=== PATIENT | female | born 1975 | race Caucasian/White ===

== ENCOUNTER 2020-10-26 14:51 | Outpatient (CLI) | payer OTHER, SELFPAY ==
--- NOTE | ~2020-10-26 | MM_ITS ---
EXAMINATION: MM screening angus BI w sonya HISTORY: Screening mammogram, family history of breast cancer in her mother. TECHNIQUE: Craniocaudal and mediolateral oblique 3-D tomosynthesis images were obtained and synthetic 2-D images were generated. CAD analysis was submitted and interpreted. COMPARISON: 07/19/2018 BREAST PARENCHYMAL COMPOSITION: There are scattered areas of fibroglandular density. FINDINGS: There is no evidence of suspicious mass, calcification, or architectural distortion to sugg est malignancy in either breast. There has been no suspicious interval change. IMPRESSION: 1. No mammographic evidence of malignancy. 2. Recommend routine screening mammography in one year. BI-RADS Category 1: Negative Reviewed, dictated and finalized at location A.
== END 2020-10-26 14:52 | disposition home or self-care (01) ==
LOC: ANHIMG 14:57
PROVIDERS: PCP Physician Assistant; Visit Provider Physician Assistant
DX: Z12.31 Encounter for screening mammogram for malignant neoplasm of breast (principal)
CPT/HCPCS: 77063; 77067

== ENCOUNTER 2021-12-06 07:58 | Outpatient (CLI) | payer OTHER, SELFPAY ==
--- NOTE | ~2021-12-06 | MM_ITS ---
EXAMINATION: MM screening angus BI w sonya HISTORY: Screening mammogram TECHNIQUE: Craniocaudal and mediolateral oblique 3-D tomosynthesis images were obtained and synthetic 2-D images were generated. CAD analysis was submitted and interpreted. COMPARISON: 10/26/2020, 07/19/2018 bilateral screening mammogram examinations BREAST PARENCHYMAL COMPOSITION: There are scattered areas of fibroglandular density. FINDINGS: There is no evidence of suspicious mass, calcification, or architectural distortion to sugg est malignancy in either breast. There has been no suspicious interval change. IMPRESSION: 1. No mammographic evidence of malignancy. 2. Recommend routine screening mammography in one year. BI-RADS Category 1: Negative Reviewed, dictated and finalized at location B.
== END 2021-12-06 07:59 | disposition home or self-care (01) ==
PROVIDERS: PCP Physician Assistant; Visit Provider Obstetrics & Gynecology
DX: Z12.31 Encounter for screening mammogram for malignant neoplasm of breast (principal)
CPT/HCPCS: 77063; 77067

== ENCOUNTER 2022-12-18 15:20 | Outpatient (CLI) | payer OTHER, SELFPAY ==
--- NOTE | ~2022-12-18 | MM_ITS ---
EXAMINATION: MM screening angus BI w sonya HISTORY: Screening mammogram, family history of breast cancer in her mother. TECHNIQUE: Craniocaudal and mediolateral oblique 3-D tomosynthesis images were obtained and synthetic 2-D images were generated. CAD analysis was submitted and interpreted. COMPARISON: 12/06/2021, 10/26/2020, 07/19/2018 BREAST PARENCHYMAL COMPOSITION: There are scattered areas of fibroglandular density. FINDINGS: No suspicious mass, calcification, or architectural distortion are identified in either filippo ast to suggest malignancy. There has been no suspicious interval change. IMPRESSION: 1. No mammographic evidence of malignancy. 2. Recommend routine screening mammography in one year. BI-RADS Category 1: Negative Reviewed, dictated and finalized at location A.
== END 2022-12-18 15:21 | disposition home or self-care (01) ==
PROVIDERS: PCP Physician Assistant; Visit Provider Nurse Practitioner
DX: Z12.31 Encounter for screening mammogram for malignant neoplasm of breast (principal)
CPT/HCPCS: 77063; 77067

== ENCOUNTER 2024-01-22 15:15 | Outpatient (CLI) | payer OTHER, SELFPAY ==
--- NOTE | ~2024-01-22 | MM_ITS ---
EXAMINATION: MM screening angus BI w sonya HISTORY: Screening mammogram, family history of breast cancer in her mother. TECHNIQUE: Craniocaudal and mediolateral oblique 3-D tomosynthesis images were obtained and synthetic 2-D images were generated. CAD analysis was submitted and interpreted. COMPARISON: 12/18/2022, 12/06/2021, 10/26/2020, 07/19/2028 BREAST PARENCHYMAL COMPOSITION:Not Dense. There are scattered areas of fibroglandular density. FINDINGS: No suspicious mass, calcification, or architectural distortion are identified in either filippo ast to suggest malignancy. There has been no suspicious interval change. IMPRESSION: No mammographic evidence of malignancy. Recommend routine screening mammography in one year. BI-RADS Category 1: Negative Reviewed, dictated and finalized at [facility].
== END 2024-01-22 15:16 | disposition home or self-care (01) ==
LOC: ANHIMG 15:18
PROVIDERS: PCP Physician Assistant; Visit Provider Nurse Practitioner
DX: Z12.31 Encounter for screening mammogram for malignant neoplasm of breast (principal)
CPT/HCPCS: 77063; 77067

== ENCOUNTER 2025-03-15 15:31 | Outpatient (CLI) | payer OTHER, SELFPAY ==
--- NOTE | ~2025-03-15 | MM_ITS ---
EXAMINATION: MM screening angus BI w sonya HISTORY: Screening TECHNIQUE: Craniocaudal and mediolateral oblique 3-D tomosynthesis images were obtained and synthetic 2-D images were generated. CAD analysis was submitted and interpreted. COMPARISON: Comparison to multiple prior studies sequentially, with oldest reviewed study dated , 07/19/2018 BREAST PARENCHYMAL COMPOSITION: There are scattered areas of fibroglandular density. FINDINGS: There is no evidence of suspicious mass, calcification, or architectural distortion to suggest malignancy in either breast. IMPRESSION: 1. No mammographic evidence of malignancy. 2. Recommend routine screening mammography in one year. 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
--- OUTSIDE RECORDS SUMMARY | 2025-03-16 14:57 | XMS_ITS | Encounter Summary ---
Author Organization [facility] Address [facility] [place] [address] Care Team Providers Care Combined Rail Operator Name Role Phone Yasmin Christiansen Primary Care Provider [phone] [facility] Primary Care Provider + Justin Toledo MD Primary Care Provider [phone] Encounter Details Date Type Department Care Team (Late st Contact Info) Description 10/25/2020 Jan Medical Message Enc [facility] Family & Internal Medicine [address] [phone] [facility] Results Social History Tobacco Use Types Packs/Day Years Used Date Smoking Tobacco: Former Cigarettes Q uit: 2016 Smokeless Tobacco: Never Alcohol Use Standard Drinks/Week Comments Yes 0 (1 standard drink = 0.6 oz pur e alcohol) socially PHQ-2 Answer Date Recorded PHQ-2 Score - If the patient scores above 3, please move on to questions 3-9 0 08/06/2020 Comments No Sex and Gender Information Value Date Recorded Sex Assigned at Female 11/09/2024 9:18 AM CDT Legal Sex Female 5:44 PM CDT Gender Identity Female 11/09/2024 9:18 AM CDT Sexual Orientation Not on file COVID-19 Exposure Response Date Recorded In the last month, have you been in contact with someone who was confirmed or suspected to have Coronavirus / COVID-19? 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 COVID-19 Rule Out 01/01/2023 01/01/2023 01/01/2023 11:16 AM CDT documented as of this encounter Care Teams Combined Rail Operator Relationship Specialty [place] [address] [facility] [address] 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
--- OUTSIDE RECORDS SUMMARY | 2025-03-16 14:57 | XMS_ITS | Data Portability ---
Author Organization [facility] [place] Address [address] [place] [address] [place] [address] Care Team Providers Care Cardroom Supervisor Name Role Phone FEDE DOTSON Primary Care Provider [phone] Assessment Encounter Date Assessment Date Assessment LastModified by Organization Details LastModified Time 12/06/2024 12/06/2024 Annual gynecological exam performed. Patient will come back in a year unless there are new symptoms. [email or web address] Not available 12/06/2024 14:03:02 Plan of Treatment Reminders Order Date Submit Date Provider Last Modified By Organization Details Last Modified Time Details Appointments None recorded. Lab test, urine 2024 025 [email or web address] [place], [address], [address], [place], [address], 17:09:23 pap, IG + HR HPV - HPV regardless but if HPV is positive need subtyping 16,18/45 2024 025 [facility] (Lab), [address], [place], [address], 20:49:26 Referral None recorded. Procedures None recorded. Surgeries None recorded. Imaging US, transvagina l 2024 025 [email or web address] [address], [address], [place], [address], 19:45:15 US, pelvis 2024 025 [email or web address] [place], [address], [place], [address], 17:50:48 US, transvagina l 2024 025 [facility], [address], [place], [address], 18:32:17 MAMMO, screening, digital, bilateral 2024 025 [facility], [address], [place], [address], 04:04:45 Medication Orders None recorded. Patient TargetsNo targets recorded. Patient InstructionsNo instructions recorded. Reason for Referral None Reported. Results Created Date Observation Date Name Description Value Unit Range Abnormal Flag Note LastModifiedBy Organization Detail LastModifiedTime 12/07/1912/06/2024 IMAGE GUIDE D PAP AND HPV REGAR DLESS image guided Pap, HPV regardless of Pap result SEE RESULT S BELOW CASE REPOR T: Cytol ogy Gynec ologi jose e Repor t Case: [id number] Autho andrew estrada Provi patricia: Adrienne Kulkarni, CHARITO Colle cted: 12/06 1607 Order ing Locat ion: [place] Patho log[facility] Recei tommy: 12/07 0720 First Scree n: Nomaki ni, Moham ed, CT Speci men: Scree olga Pap - Image d, Cervi x STATE MENT OF ADEQU ACY: Satis facto ry for evalu ation Trans forma tion zone compo nent prese nt ----- ----- ----- ----- ----- ----- ----- ----- ----- ----- ----- ----- ----- ----- ----- ----- ----- ---- FINAL DIAGN OSIS: Negat eric for Intra epith elial Faith n or Ochoa lawson (NIL) . Elect ramesh lindsay adrienne d by Wayne Sharif ed, CT on 2024 at 1945 CDT ----- ----- ----- ----- ----- ----- ----- ----- ----- ----- ----- ----- ----- ----- ----- ----- ----- ---- HPV RESUL TS: HPV mRNA E6/E7 : No HPV mRNA Detec farhat NOTE: This high risk HPV mRNA assay detec ts fourt een high- risk HPV types (16, 18, 31, 33, 35, 39, 45, 51, 52, 56, 58, 59, 66, 68) witho ut diffe renti ation . COMME NT: This speci men was revie wed by a Cytot echno logis t and/o r Patho logis t (as indic ated in this repor t) after evalu ation using the Thinp rep Imagi ng Syste m. CLINI JOSE E INFOR MATIO N: Menst rual Statu s: LMP (if appli cable ): Clini jose e Histo ry/Pr eviou s Pap: Type of Neopl laine (if appli cable ): Signi fican t Clini jose e Findi ngs: Other Histo ry: Hormo reyna (if appli cable ): PAP EDUCA MARCELO L NOTE: The Pap Test is a scree olga test with an inher ent false negat eric rate. Liqui d-bas ed sampl ing may decre ase, but will not elimi alok, false negat eric resul ts. A negat eric resul t does not precl ude the prese nce and/o r devel opmen t of disea se, since the prese nce of abnor mal cells in the sampl e depen ds on the locat ion of the lesio n and sampl ing techn ique. Merline nued regul ar scree olga is the best metho d of cance r preve ntion . If repor farhat cytol ogic findi ng do not corre late with physi jose e and/o r histo rical findi ngs, furth er inves tigat ion is recom júnior d, as clini victorina coppola nted. Not Available [facility] (Lab) [address], [place], [address], 12/08/2024 20:49:26 01/19/20 25 01/18/2025 pregn zen test, urine HCG negati ve Not Available [place] [address], [place], [address], 01/18/2025 17:09:14 12/16/19 25 12/15/2024 US, pelvi s No observ ation record ed. [facility] [address], [place], [address], 12/15/2024 18:32:07 12/16/19 25 12/15/2024 US, trans vagin al No observ ation record ed. [facility] [address], [place], [address], 12/15/2024 18:32:17 12/16/19 25 12/15/2024 US, pelvi s No observ ation record ed. [email or web address] [address], [place], [address], 12/23/2024 17:13:04 02/22/20 25 02/21/2025 US, trans vagin al No observ ation record ed. [email or web address] [place] [address], [place], [address], 02/21/2025 18:00:51 02/22/20 25 02/21/2025 US, trans vagin al No observ ation record ed. ADELA [address] [address], [place], [address], 02/23/2025 11:42:55 Result Notes None recorded. Procedures Surgical History Date Name Laterality Status Provider Name and Address Organization Details Recorded Time 01/19/20 25 Endometrial Biopsy completed Adrienne Kulkarni [facility] [address], [place], [address], [facility] 01/19/2025 14:02:35 12/07/19 25 Date of Last Pap Smear completed [facility] 01/18/2025 16:47:48 01/22/20 24 Date of Last Mammogram completed [facility] 12/06/2024 14:05:30 10/31/19 19 completed [facility] 11/24/2022 09:41:23 10/31/19 19 Date of Last Colonoscopy completed [facility] 11/24/2022 09:41:23 10/31/19 19 Colonoscopy completed Tari [facility] 11/24/2022 09:50:18 05/11/19 19 hysteroscopy completed Tari [facility] 11/24/2022 09:49:41 05/11/19 09 [facility] 03/20/2020 17:23:44 05/11/18 96 extraction of wisdom tooth completed Tari Brumfield [facility] 11/24/2022 09:50:06 Imaging Results None recorded. Procedure Notes None recorded. Medical Equipment None Reported. Allergies Allergen ID Allergen Name Allergen Category Reaction Reaction Severity Criticality Documentation Date Start Date Code Code System Note Provider Name and Address Organization Details Recorded Time 2680 peanut allergeni c extract food,medi cation Not available Not available Not available 03/20/2020 26005 8 RxNorm Nena Gao [facility] 0 17:22:16 Medications Name Sig Start Date Stop Date Status Note LastModified by Organization Details LastModified Time doxycycli ne hyclate 100 mg capsule 12/06 completed Not Available Not Available Not Available azithromy annie 250 mg tablet TAKE 2 TABLETS BY MOUTH FOR 1 DAY THEN TAKE 1 TABLET BY MOUTH DAILY FOR 4 DAYS 11/29 completed Not Available Not Available Not Available sumatript an 100 mg tablet TAKE 1 TABLET BY MOUTH AT ONSET OF MIGRAINE MAY REPEAT IN 2 HOURS IF NEEDED. NO MORE THAN 2 IN A 24 HOUR PERIOD active Not Available Not Available No t Available meloxicam 15 mg tablet TAKE 1 TABLET BY MOUTH EVERY DAY FOR 10 DAYS THEN NEEDED 11/22 completed Not Available Not Available Not Available rizatript an 10 mg tablet 11/24 completed Not Available Not Available Not Available sumatript an 5 mg/actuat ion nasal spray ADMINIST ER 1 SPRAY INTO 1 NOSTRIL EVERY 2 HOURS NEEDED FOR MIGRAINE 11/24 completed Not Available Not Available Not Available penicilli n V potassium 500 mg tablet 11/24 completed Not Available Not Available Not Available peg-elect rolyte solution 420 gram oral solution FOLLOW THE INSTRUCT ION SHEET GIVEN BY THE DRS OFFICE. 12/06 completed Not Available Not Available Not Available amoxicill in 500 mg tablet TK 1 T PO Q 8 H FOR 7 DAYS 03/21 completed Not Available Not Available Not Available terbinafi ne HCl 250 mg tablet 11/29 completed Not Available Not Available Not Available rizatript an 10 mg disintegr ating tablet active Not Available Not Available Not Available ibuprofen 400 mg tablet 11/29 completed Not Available Not Available Not Available diclofena c sodium 75 mg tablet,de layed release 11/22 completed Not Available Not Available Not Available sumatript an 20 mg/actuat ion nasal spray USE 1 SPRAY INTO 1 NOSTRIL EVERY 2 HOURS NEEDED FOR MIGRAINE 11/29 completed Not Available Not Available Not Available [place] 5 mg-325 mg tablet take 1 tablet by oral route every 4 hours as needed for pain 11/22 completed Prescrib ed Elsewher e: Yes Loca tion: [facility] odify By: Encount er DateTime : 12/03/19 05:15:00 PM Not Available Not Available Not Available clobetaso l 0.05 % scalp solution 11/24 completed Not Available Not Available Not Available fluticaso ne propionat e 50 mcg/actua tion nasal spray,gris pension INSTILL 2 SPRAYS INTO EACH NOSTRIL TWICE DAILY FOR 3 DAYS THEN 2 SPRAYS IN EACH NOSTRIL ONCE DAILY 11/29 completed Not Available Not Available Not Available amoxicill in 875 mg-potass ium clavulana te 125 mg tablet 12/03 completed Not Available Not Available Not Available clindamyc in 1 % lotion APPLY A THIN LAYER TOPICALL Y TO THE AFFECTED AREA TWICE DAILY 11/29 completed Not Available Not Available Not Available Angie 0.35 mg tablet take 1 tablet by oral route every day 11/22 completed Prescrib barrington Stanley e: No Locat ion: [facility] odify By: garth dennis DateTime : 09/18/19 01:30:00 PM Not Available Not Available Not Available Soolantra 1 % topical cream 12/06 completed Not Available Not Available Not Available [facility] mg disintegr ating tablet DISSOLVE 1 TABLET BY MOUTH NEEDED FOR MIGRAINE HEADACHE . NOT TO EXCEED 1 TABLET IN 24 HOUR PERIOD. active Not Available Not Available No t Available Zilxi 1.5 % topical foam 2023 active Not Available Not Available Not Avai lable Vitals Date Recorded Body height Body mass index (BMI) Body weight Systolic And Diastolic Provider Name and Address Organization Details Last Updated DateTime 12/06/2024 172.72 cm 31.2 kg/m2 92449.44 g 114/73 mm[Hg] [facility] 12/06/2024 14:03:36 Date Recorded Body height Body mass index (BMI) Body weight Systolic And Diastolic Provider Name and Address Organization Details Last Updated DateTime 01/18/2025 172.72 cm 31 kg/m2 47002.84 g 101/69 mm[Hg] [facility] 01/18/2025 16:47:25 Date Recorded Body height Body mass index (BMI) Body weight Systolic And Diastolic Provider Name and Address Organization Details Last Updated DateTime 03/10/2025 172.72 cm 30.4 kg/m2 63701.47 g 120/81 mm[Hg] Nicole Cheung [facility] 03/10/2025 10:23:24 Social History Question Answer Notes LastModified by Organizat ion Details LastModified Time Tobacco Smoking Status Current Some Day Smoker very occasional smoker Tari Brumfield dorian, [facility] 11/24/2022 09:41:24 Do You Have An Advance Directive? No [email or web address] Information not available 11/24/2022 How Many Years Have You Consumed Alcohol? 26 [email or web address] Information not available 11/24/2022 Are You Blind Or Do You Have Difficulty Seeing? No [email or web address] Information not available 11/24/2022 What Is Your Level Of Caffeine Consumption? Occasional [email or web address] Information not available 11/24/2022 How Much Tobacco Do You Chew? None [email or web address] Information not available 11/24/2022 In The 14 Days Before Symptom Onset, Have You Had Close Contact With A Laboratory-confi rmed COVID-19 While That Case Was Ill? No [email or web address] Information not available 11/24/2022 In The 14 Days Before Symptom Onset, Have You Had Close Contact With A Person Who Is Under Investigation For COVID-19 While That Person Was Ill? No [email or web address] Information not available 11/24/2022 Have You Been To An Area Known To Be High Risk For COVID-19? No [email or web address] Information not available 11/24/2022 Are You Deaf Or Do You Have Serious Difficulty Hearing? No [email or web address] Information not available 11/24/2022 What Type Of Diet Are You Following? REGULAR [email or web address] Information not available 11/24/2022 What Is The Highest Grade Or Level Of School You Have Completed Or The Highest Degree You Have Received? [id number] [email or web address] Information not available 11/24/2022 Are There Any Guns Present In Your Home? Yes [email or web address] Information not available 11/24/2022 Have You Ever Been Counseled For Unhealthy Alcohol Use? No Information not available 11/24/2022 Do You Use Protection During Sex? No [email or web address] Information not available 11/24/2022 Do You Use Your Seat Belt Or Car Seat Routinely? Yes Information not available 11/24/2022 Do You Have Smoke And Carbon Monoxide Detectors In Your Home? Yes [email or web address] Information not available 11/24/2022 How Much Tobacco Do You Smoke? No [email or web address] Information not available 11/24/2022 Do You Use Sunscreen Routinely? Yes [email or web address] Information not available 11/24/2022 Have You Used IV Drugs? No [email or web address] Information not available 11/24/2022 Do You Have Difficulty Walking Or Climbing Stairs? No Information not available 11/24/2022 Sex: Unknown Functional Status Question Answer Note LastModified by Organizat ion Details LastModified Time Do you use any illicit or recreational drugs? No [email or web address] Information not available 11/24/2022 What is your level of alcohol consumption? Occasional Information not available 11/24/2022 Are you able to care for yourself independently? 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 No [email or web address] Information not available 11/24/2022 What is your exercise level? Moderate [email or web address] Information not available 11/24/2022 Mental Status Question Answer Note LastModified by Organization D etails LastModified Time Do you feel stressed (tense, restless, nervous, or anxious, or unable to sleep at night)? [id number] [email or web address] Information not available 11/24/2022 Family History Relationship Description Onset Age of this Age Resolved Age Notes LastModified by Organization Details LastModified Time Mother Carcinoma in situ of breast [email or web address] Not available 02/08 16:48:33 Mother Carcinoma in situ of colon [email or web address] Not available 02/08 16:48:33 Mother Carcinoma in situ of ovary [email or web address] Not available 02/08 16:48:33 Mother Cyst of ovary [email or web address] Not available 02/08 16:48:33 Mother Malignant neoplasm of breast [email or web address] Not available 2023 10:06:53 Mother Malignant neoplasm of uterus [email or web address] Not available 2023 10:06:53 Father Carcinoma in situ of colon [email or web address] Not available 02/08 16:48:33 Father Hypertensive disorder [email or web address] Not available 2019 17:20:55 Father Disorder of lung [email or web address] Not available 2023 10:06:54 Father Depressive disorder [email or web address] Not available 2023 10:06:54 Father Malignant neoplasm of colon [email or web address] Not available 2023 10:06:54 Father Heart disease [email or web address] Not available 2023 10:06:54 Paternal Grandmother Carcinoma in situ of breast [email or web address] Not available 02/08 16:48:33 Paternal Grandmother Malignant neoplasm of breast [email or web address] Not available 2023 10:06:54 Maternal Grandmother Diabetes mellitus [email or web address] Not available 2019 17:21:17 Maternal Grandfather Carcinoma in situ of colon [email or web address] Not available 02/08 16:48:33 Maternal Grandfather Malignant neoplasm of colon [email or web address] Not available 2023 10:06:54 Maternal Uncle Carcinoma in situ of lung [email or web address] Not available 1 16:48:33 Sister Depressive disorder [email or web address] Not available 2023 10:06:54 Notes:Father: Hypertension, Cancer, colon Maternal grandfather: Cancer, colon Maternal grandmother: Diabetes mellitus Maternal uncle: Cancer, lung Mother: ovarian cyst, Cancer, ovarian, Cancer, colon, Cancer, breast Paternal grandmother: Cancer, breast Medical History Condition Response Allergies (Food, seasonal, environmental ) Y Other N Breast Cancer N Drug/Latex Allergies/Reactions N Blood Transfusion N Dermatologic Disorders Y Lung Disease N Defects or Inherited Disease N Breast Problem N Gestational Diabetes N Hematologic disorders N Anesthesia Complications N History of STI N Deep Vein Thrombosis N Polycystic ovary syndrome N Anxiety Disorder N Autoimmune disease N Arthritis N Infertility N Polyps N Acid Reflux (GERD) N History of abnormal pap N Cancer N Stroke N Varicosities N Neurologic/Epilepsy N Endometriosis N High Cholesterol N Headaches Y Fibromyalgia N Kidney Disease N Heart Problems N Kidney or Bladder Problems N Thyroid Problems N GI Problems N Eating Disorder N Anemia N Art (IVF or FET) N Psychiatric Illness N Ovarian Cancer N Diabetes N Pulmonary (TB, Asthma) N Hepatitis/Liver Disease N Eczema N Urinary Tract Infection N Abuse/Domestic Violence N Asthma N Trauma/Violence N Depression/ depression N Heart Disease N Pre-Eclampsia N Hypertension N Osteoporosis N Thrombophilias N Gynecological History Statement/Question Response Abnormal Pap N Date of Last Mammogram 01/22/2024 Date of LMP 10/19/2024 N On BCP's at Conception? N STIs/STDs N Was last menstrual period normal Y HPV Vaccine N Duration of Flow (days) 3 Current Control Method Tubal Ligat ion Age at First Child 24 Date of Last Colonoscopy 10/30/2018 Frequency of Cycle (Q days) 3 Sexually Active? Y Date of DEXA bone scan Age of first menstrual cycle 12 Date of Last Pap Smear 12/06/2024 Sexual Problems? N LMP Approximate Desired Control Method Ablation 10/30/2018 N Obstetrics History GPAL:G 2 P 2 0 0 2 Type Value Full Term 2 Living 2 Total 2 Past Encounters Encounter ID Performer Location Encounter Start Date Encounter Closed Date Diagnosis/Indication Diagnosis SNOMED-CT Code Diagnosis ICD10 Code Diagnosis IMO Codes Diagnosis Note [id number] Laurence Scanlon MD [place] [address],[place] [address] 03/21/2020 14:23:11 03/21/2020 17:19:39 Gynecologic examination 09766923 Z01.419 Screening for malignant neoplasm of cervix 372831784 Z12.4 Reduced libido 8342227 R 68.82 History of tubal ligation 657737134 Z98.51 [id number] Laurence Scanlon MD [place] [address],[facility] [place] [address] 11/22/2021 14:23:00 11/25/2021 15:28:47 Gynecologic examination 16031549 Z01.419 [id number] LEROY White [place] [address],[place] [address] 11/24/2022 09:18:40 11/24/2022 10:14:27 Screening for malignant neoplasm of breast 100451132 Z12.39 Gynecologi c examination 87604653 Z01.419 Suggested Calcium with Vitamin D 1200-1500m g daily. Patient advised to get an annual flu shot in the fall and she could obtain at [facility] or [facility] take care clinic. Also to obtain TDap vaccinatio n if you have not had one in the last 10 years. Recommend yearly mammograms . Encouraged monthly self breast exams. Encourage safe sexual practices, to use condoms and limit partners if not already in a monogamous relationsh ip. Engage in daily exercise of low impact aerobic exercise 45-60 minutes 4-5 times weekly. Avoid tobacco and illicit drugs as well as using moderation with alcohol intake less than 1-2 8 oz beverages daily. This lifestyle behavior pattern will lead to less health conditions and longer life span. If BMI greater than 25 weight watchers or dietary consult advised. All questions have been answered. Patient appears to understand informatio n, but if you have any questions please call or respond to this email. WWEB - BTL/Ablati onperimeno pausalno hx of abnormal papslast pap 2020 - normalpap updated todaySTI testing declinedma mmogram order givencolon CA screening UTDUTD with PCPRTC in 1 year or sooner if needed [id number] LEROY White [place] [address] [address] 11/30/2023 10:01:10 11/30/2023 15:07:40 Gynecologic examination 57422367 Z01.419 [facility] - BTLpap updateddec lined STI screenmamm ogram order givencolon oscopy UTDroutine labs UTD/PCP Do monthly self breast exams. It is advised to get annual flu shot in the fall and she could obtain at local pharmacy. If you haven't received the Tdap vaccine in the last 10 years you should obtain one as well. Have mammogram yearly and stay up to date on colon cancer screening. Engage in regular exercise. Avoid tobacco and illicit drugs This lifestyle behavior pattern will lead to less health conditions and longer life span. If BMI greater than 25 dietary consult advised. Questions have been answered Screening for malignant neoplasm of breast 694506022 Z12.39 Perimenopausal state 334 7373053 15369 Z78.0 Discussed period hx (perimenop ause vs postmenopa usal bleeding)r ecommended updated labs and pelvic u/s - orderedwil l reach out to pt with results when available and discuss next steps [id number] LEROY White [place] [address] [address] 12/06/2024 13:53:43 12/06/2024 14:48:16 Gynecologic examination 48773500 Z01.339 [id number] WWEPap - done todaySTI screen - declinedMa mmogram - order givenColon cancer screening - [facility] - PCPRTC in 1 yr or sooner if needed Suggested Calcium with Vitamin D daily. Patient advised to get an annual flu shot in the fall and she could obtain at local pharmacy. Also to obtain TDap vaccinatio n if you have not had one in the last 10 years. Recommend yearly mammograms . Encouraged monthly self breast exams. Encourage safe sexual practices, to use condoms and limit partners if not already in a monogamous relationsh ip. Engage in regular exercise. Avoid tobacco and illicit drugs. This lifestyle behavior pattern will lead to less health conditions and longer life span. If BMI greater than 25 dietary consult advised. All questions have been answered. Screening mammography 24 794591 Z12.31 [id number] Postmenopa usal bleeding 13718247 N95.0 [id number] Discussed period hx (perimenop ause vs postmenopa usal bleeding)r ecommended updated pelvic u/s, ordered [id number] Farhan Gamino MD [place] [address] [address] 12/15/2024 12:14:39 12/15/2024 12:50:46 Abnormal uterine bleeding 9269851013 9100 N93.9 [id number] LEROY White [place] [address] [address] 01/18/2025 16:07:01 01/19/2025 14:12:39 Postmenopausal bleeding 59396544 N95.0 79519 R/b discussed and accepted by ptEMB performed (see procedure note)quest ions answered/p recautions discussedw ill reach out to pt with pathology results/re commendati ons [id number] PEDRO PRETTY MD [place] [address] [address] 02/21/2025 16:48:29 02/21/2025 17:27:55 Abnormal uterine bleeding 4907539993 9100 N93.9 N83.202 [id number] PEDRO PRETTY MD [place] [address] [address] 03/10/2025 10:05:10 03/13/2025 12:41:34 Abnormal uterine bleeding 0839322135 9100 N93.9 [id number] - likely perimenopa usal with breakthrou gh bleeding following endometria l ablation- discussed expectant management vs medical management with OCPs vs HRT vs surgical management with hysterecto my- patient desires expectant management at this time Health Concerns Section Related Observation LastModified by Organization Detai ls LastModified Time None Recorded Concern Status LastModified by Organization Details LastModified Time None Recorded Advance Directives Directive N: Payers Insurance Date Sequence Insurance Name Policy Number Policy Valencia Covered Member ID Valencia Member ID Guarantor Name 03/13/2025 1 [employer] (POS) [id number] David Peters [id number] Sharon Peters Notes Date Note Type Note Provider Name and Address Organization Details Recorded Time 5 text/html Annual GYNReported by PatientGenitourinary symptomsFor urinary symptoms, patient reportsno hematuriaandno incontinence. For vulva, patient reportsno genital lesion. For vagina, patient reportsnormal vaginal discharge.Breast symptomsFor breast, patient reportsno breast pain,no breast lump, andno nipple discharge.ContraceptionFo r current contraception, patient reportstubal ligation.Endocrine symptomsFor sexual complaints, patient reportsno sexual complaints,no pain during intercourse, andnormal libido. For menopausal symptoms, patient reportsno menopausal symptomsandnormal vaginal lubrication.Psychological symptomsFor psychological symptoms, patient reportsno depression,no anxiety, andno pmdd.Preventative measuresFor preventive measures, patient reportsencourage self breast examination,encourage regular exercise,encourage no tobacco use, andencourage regular mammograms starting age 40.50yo wweh/o BTL, endometrial ablationlast pap 11/2023 : nilm, HPV (-)mammogram last 4colonoscopy UTD 2024 continued to have monthly periods after the ablation. 3 years ago started having periods every 1-4 months, went 12 months without bleeding - then had 3-4 days of light spotting 10/2023, went another 12 months without bleeding and had light spotting again 10/2024. No current bleeding Tanja Qiujon alarcon, [facility] 12/06/2024 16:13:17 5 text/html 49yoHere today for EMBh/o BTL, endometrial ablation continued to have monthly periods after the ablation. 3 years ago started having periods every 1-4 months, went 12 months without bleeding - then had 3-4 days of light spotting 10/2023, went another 12 months without bleeding and had light spotting again 10/2024. No current bleeding LEROY White [address], [place], [address], [facility] 01/19/2025 14:04:05 5 text/html Beer - Abnormal BleedingReported by PatientROS as noted in the HPI Patient presents to discuss irregular bleeding. She has a history of an ablation, and periods were previously extremely light after ablation. She has had two periods this year that increasing in cramping and flow. She recently had a pelvic US that was overall normal with a thin endometrium PEDRO PRETTY MD [address], [place], [address], [facility] 03/13/2025 11:12:33 OBGyn Episode Ob Episode Information Episode Created Date Number of Fetuses Patient Bloodtype Patient rh Status Prepregnancy Weight lbs Domestic Partner Domestic Partner Phone Father Name Funeral Director'S Assistant Status 03/21/20 20 1 CLOSED Fetus Data First Name Last Name Admitted to NICU Weight (g) Sex Living Outcome Pediatric Complications Fetus ID Race Codes Race Delivery Type 3628.73 6 F Full Term 6037 Vaginal Delivery Tyler Calculation Initial Tyler Date Initial Exam Date Initial Exam Provider Initial Ultrasound Date Last Menstrual Period Date Ultra Sound Weeks Gestation 0 Eighteen To Twenty Week Tyler Update Ultra Sound Date Fundal Height At Umbil Quickening Date Ultra Sound Latest Weeks Gestation Final Tyler Confirmed By Final Tyler Confirmed Date Final Tyler Date Ultra Sound Latest Days Gestation 0 0 Menstrual History Last Menstrual Date Menses Monthly On Bcp Conception Prior Menses Frequency Hcg Plus Date Menarche Onset Age Delivery Information Delivery Date Delivery Type Labor Anesthesia Weeks Gestation Incision Type Labor Labor Length Hrs Delivered By Post Complications Tubal Sterilization Discharge Date Comments 5 38 Discharge Information Feeding Method Contraceptive Method Maternal HG B and HCT Levels Ob Episode Information Episode Created Date Number of Fetuses Patient Bloodtype Patient rh Status Prepregnancy Weight lbs Domestic Partner Domestic Partner Phone Father Name Funeral Director'S Assistant Status 03/21/20 20 1 CLOSED Fetus Data First Name Last Name Admitted to NICU Weight (g) Sex Living Outcome Pediatric Complications Fetus ID Race Codes Race Delivery Type [id number] M Full Term 6038 Vaginal Delivery Tyler Calculation Initial Tyler Date Initial Exam Date Initial Exam Provider Initial Ultrasound Date Last Menstrual Period Date Ultra Sound Weeks Gestation 0 Eighteen To Twenty Week Tyler Update Ultra Sound Date Fundal Height At Umbil Quickening Date Ultra Sound Latest Weeks Gestation Final Tyler Confirmed By Final Tyler Confirmed Date Final Tyler Date Ultra Sound Latest Days Gestation 0 0 Menstrual History Last Menstrual Date Menses Monthly On Bcp Conception Prior Menses Frequency Hcg Plus Date Menarche Onset Age Delivery Information Delivery Date Delivery Type Labor Anesthesia Weeks Gestation Incision Type Labor Labor Length Hrs Delivered By Post Complications Tubal Sterilization Discharge Date Comments 0 41 Discharge Information Feeding Method Contraceptive Method Maternal HG B and HCT Levels
--- OUTSIDE RECORDS SUMMARY | 2025-03-16 14:57 | XMS_ITS | Encounter Summary ---
Author Organization [facility] Address [facility] [place] [address] Care Team Providers Care Acetylene Cutter Name Role Phone Genet Garcia Primary Care Provider + Justin Toledo MD Primary Care Provider [phone] Encounter Details Date Type Department Care Team (Late st Contact Info) Description 10/13/2023 Startups Message [facility] Family & Internal Medicine [address] [address] [facility], [facility] Provider reschedule appointment Social History Tobacco Use Types Packs/Day Years Used Date Smoking Tobacco: Former Cigarettes Q uit: 2016 Passive Smoke Exposure: Past Smokeless Tobacco: Never Alcohol Use Standard Drinks/Week Comments Yes 2 (1 standard drink = 0.6 oz pur e alcohol) socially; cidar PHQ-2 Answer Date Recorded Patient Health Questionnaire-2 Score 0 07/06/2023 Comments No Sex and Gender Information Value Date Recorded Sex Assigned at Female 11/09/2024 9:18 AM CDT Legal Sex Female 5:44 PM CDT Gender Identity Female 11/09/2024 9:18 AM CDT Sexual Orientation Not on file documented as of this encounter Plan of Treatment Not on file documented as of this encounter Visit Diagnoses Not on filedocumented in this encounter Care Teams Acetylene Cutter Relationship Specialty Start Date End Date Genet Garcia FNP-BC PCP - General Nurse Practitioner Family 07/24/2311/08 [place] [address] [id number] PCP - General INTERNAL MEDICINE 11/19/24 documented as of this encounter
--- OUTSIDE RECORDS SUMMARY | 2025-03-16 14:57 | XMS_ITS | Encounter Summary ---
Author Organization [facility] Address [facility] [place] [address] Care Team Providers Care Machine Clipper Name Role Phone Yasmin Christiansen Primary Care Provider + [phone] Genet Garcia [facility] Primary Care Provider + Justin Toledo MD Primary Care Provider [phone] Encounter Details Date Type Department Care Team (Late st Contact Info) Description 05/22/2021 [place] [employer] Message Enc [facility] Medical Group Family & Internal Medicine [facility] [address] [place] [phone] Yasmin Christiansen PA [address] [place] [address] Sore throat/cough Social History Tobacco Use Types Packs/Day Years [...] Rule Out 06/27/2022 06/27/2022 06/27/2022 12:02 PM FIELD SERVICE REPRESENTATIVE COVID-19 Rule Out 01/01/2023 01/01/2023 01/01/2023 11:16 AM CDT documented as of this encounter Care Teams Machine Clipper Relationship Specialty [place] [address] [place] [address] PCP - General PHYSICIAN EDUCATIONAL FUNDRAISING DIRECTOR 08/06/20 07/23/23 Genet Garcia, [facility]- [address] [place] [address] PCP - General Nurse Practitioner Family 07/24/2311/08 [place] [address] [address] PCP - General INTERNAL MEDICINE 11/19/24 documented as of this encounter
--- OUTSIDE RECORDS SUMMARY | 2025-03-16 14:57 | XMS_ITS | Encounter Summary ---
Author Organization [facility] Address [facility] [place] [address] Care Team Providers Care Venetian Blind Tape Cutter Name Role Phone Yasmin Christiansen Primary Care Provider + [phone] Genet Garcia [facility] Primary Care Provider + Justin Toledo MD Primary Care Provider [phone] Encounter Details Date Type Department Care Team (Late st Contact Info) Description 10/11/2020 Yododot Message Enc [facility] Medical Group Family & Internal Medicine [facility] [address] [place] [address] Yasmin Christiansen PA [address] [place] [address] RE: Referral Request Social History Tobacco Use Types Packs/Day Years [...] have Coronavirus / COVID-19? No / Unsure 10/11/2020 8:26 AM CDT documented as of this encounter Plan of Treatment Not on file documented as of this encounter Visit Diagnoses Not on filedocumented in this encounter Additional Health Concerns Infection Onset Date Last Indicated Resolved Time COVID-19 Rule Out 06/27/2022 06/27/2022 06/27/2022 12:02 PM PROOF READER COVID-19 Rule Out 01/01/2023 01/01/2023 01/01/2023 11:16 AM CDT documented as of this encounter Care Teams Venetian Blind Tape Cutter Relationship Specialty [place] [address] [place] [address] PCP - General PHYSICIAN SET UP / OPERATOR 08/06/20 07/23/23 Genet Garcia, [facility]- [address] [place] [address] PCP - General Nurse Practitioner Family 07/24/2311/08 [place] [address] [facility] [address] [address] PCP - General INTERNAL MEDICINE 11/19/24 documented as of this encounter
--- OUTSIDE RECORDS SUMMARY | 2025-03-16 14:57 | XMS_ITS | Encounter Summary ---
Author Organization [facility] Address [facility] [place] [address] Care Team Providers Care Supply Chain Planner Name Role Phone Yasmin Christiansen Primary Care Provider + [phone] Genet Garcia [facility] Primary Care Provider + Justin Toledo MD Primary Care Provider [phone] Encounter Details Date Type Department Care Team (Late st Contact Info) Description 07/18/2022 Inter[employer]vet Message Enc [facility] Medical Group Family & Internal Medicine [facility] [address] [place] [phone] Yasmin Christiansen PA [address] [place] [address] I got a message. Social History Tobacco Use Types Packs/Day Years [...] Exposure Response Date Recorded In the last 10 days, have yo u been in contact with someone who was confirmed or suspected to have Coronavirus/COVID-19? No / Unsure 07/13/2022 11:05 AM HOMEBIRTH MIDWIFE documented as of this encounter Plan of Treatment Not on file documented as of this encounter Visit Diagnoses Not on filedocumented in this encounter Additional Health Concerns Infection Onset Date Last Indicated Resolved Time COVID-19 Rule Out 01/01/2023 01/01/2023 01/01/2023 11:16 AM CDT documented as of this encounter Care Teams Supply Chain Planner Relationship Specialty [place] [address] [place] [address] PCP - General PHYSICIAN CUSTOMER RELATIONS ASSISTANT 08/06/20 07/23/23 Genet Garcia, [facility]- [address] [facility] [place] [address] PCP - General Nurse Practitioner Family 07/24/2311/08 [place] [address] [facility] [address] [address] PCP - General INTERNAL MEDICINE 11/19/24 documented as of this encounter
--- OUTSIDE RECORDS SUMMARY | 2025-03-16 14:57 | XMS_ITS | Clinical Summary ---
Author Organization [facility] Address [address] [place] [address] Care Team Providers Care User Support Analyst Name Role Phone Yasmin Christiansen Primary Care Provider [phone] Allergies Active Allergy Reactions Criticality Noted Date Comments Peanut Butter Flavor Headache Low 07/22/2020 Medications meloxicam (MOBIC) 15 mg tabletIndications: Left shoulder pain, unspecified chronicity Take 1 Tab PO QD x 10 days Then PRN 30 tablet 02/29/20 21 Active Additional Information Patient not taking.Reported on 10/14/2022 rizatriptan FURNACE KEEPER (MAXALT-FURNACE KEEPER) 10 mg disintegrating tabletIndications: Migraine Take 1 tablet (10 mg total) by mouth once as needed for migraine May repeat in 2 hours if unresolved. Do not exceed 30 mg in 24 hours. 9 tablet 6 07/19/19 23 Active SUMAtriptan (IMITREX) 100 mg tabletIndications: Migraine Take 1 tablet (100 mg total) by mouth as needed for migraine (headache) May repeat one time after 2 hours if needed. 9 tablet 11 10/15/19 23 Active SUMAtriptan (IMITREX) 20 mg/actuation nasal sprayIndications:M igraine Administer 1 spray (20 mg total) into one nostril every 2 (two) hours as needed for migraine 12 each 2 05/06/20 23 Active Active Problems Problem Noted Date Diagnosed Date Migraine 04/09/2020 Chronic sinusitis 04/09/2020 Surgical History Surgery Date Site/Laterality Comments TUBAL LIGATION Medical History Medical History Date Comments Migraines Chronic sinusitis Obesity Family History Medical History Relation Name Comments Cancer Father Cancer Maternal Grandfather Hypertension Maternal Grandfather Diabetes Maternal Grandmother Hypertension Maternal Grandmother Cancer Mother Relation Name Status Comments Father Other Liver Maternal Grandfather Other Bladder and intestines Maternal Grandmother Mother Other Breast and panc reatic Social History Tobacco Use Types Packs/Day Years Used Date Smoking Tobacco: Former Cigarettes Q uit: 2016 Smokeless Tobacco: Never Tobacco Cessation:Counseling Given: Not Answered Alcohol Use Standard Drinks/Week Comments Yes 0 (1 standard drink = 0.6 oz pur e alcohol) 6 drink in a week AUDIT-C Answer Date Recorded Q1: How often do you have a drink containing alc ohol? Monthly or less 07/22/2020 Average Number of Drinks Not on file 021 Frequency of Binge Drinking Not on file 07/09 Personal Safety Answer Date Recorded Getting School Help Needed Not on file 05/06 Comments No Sex and Gender Information Value Date Recorded Sex Assigned at Not on file Legal Sex Female 2:32 PM MEDICAL RECORDS FIELD TECHNICIAN Gender Identity Not on file Sexual Orientation Not on file Last Filed Vital Signs Vital Sign Reading Time Taken Comments Blood Pressure 134/83 10/14/2022 11:00 AM CDT Pulse 61 10/14/2022 11:00 AM CDT Temperature 36.8 C (98.3 F) 10/14/2022 11:00 AM CDT Respiratory Rate 16 07/22/2020 4:08 PM CDT Oxygen Saturation 97% 10/14/2022 11:00 AM CDT Inhaled Oxygen Concentration - - Weight 92.5 kg (204 lb) 10/14/2022 11:00 AM CDT Height 175.3 cm (5' 9) 10/14/2022 11:00 AM CDT Body Mass Index 30.13 10/14/2022 11:00 AM CDT Plan of Treatment Health Maintenance Due Date Last Done Comments Breast Cancer Screening-Mammogram 1974 Cervical Cancer Screening 1974 Colon Cancer Screening-Colonoscopy 1974 Depression Screening 1974 Hepatitis C Screening 1974 Hepatitis B Screening 1992 Regular Well Visit/Exam 18-64 1992 Zoster Vaccine (1 of 2) 2024 Covid-19 Vaccine (2024-2 6 season) 2025 06/30/2020, 06/02/2020 Influenza Vaccine (#1) 2025 DTaP/Tdap/Td Vaccine (2 - Td or Tdap) 08/06/2030 08/06/2020 Pneumococcal vaccine <65 Aged Out No longer eligible based on patient's age to complete this topic Insurance [facility] HMO Care Teams User Support Analyst Relationship Specialty Start Date End Date Yasmin Christiansen PA PCP - General Physician Share Holder 02/20/21
--- OUTSIDE RECORDS SUMMARY | 2025-03-16 14:57 | XMS_ITS | Encounter Summary ---
Author Organization [facility] Address [facility] [place] [address] Care Team Providers Care Plastic Cnc Machine Operator Name Role Phone Genet Garcia Primary Care Provider + Justin Toledo MD Primary Care Provider [phone] Encounter Details Date Type Department Care Team (Late st Contact Info) Description 08/03/2023 Sentropit Message Enc [facility] Medical Group Family & Internal Medicine [facility] [address] [place] [address] Genet Garcia FNP-BC [address] [address] Low Neutrophil Social History Tobacco Use Types Packs/Day Years [...] on file documented as of this encounter Progress Notes * LENIN Perez - 08/04/2023 10:29 AM CDT The neutrophil count can be low when you currently have or are recovering from a viral infection. It can also go down with any recent antibiotic use. It was likely lower because you were not feeling well in the office and had recently been on antibiotics. Your numbers were in the normal range on previous labs so I suspect this is the case with your current lab results. Healthy diet, adequate sleep, exercise and avoiding stress are good ways to prevent illness. * Oumou Ortiz MA - 08/04/2023 9:19 AM CDT Advise? documented in this encounter Plan of Treatment Not on file documented as of this encounter Visit Diagnoses Not on filedocumented in this encounter Care Teams Plastic Cnc Machine Operator Relationship Specialty Start Date End Date Genet Garcia FNP-BC PCP - General Nurse Practitioner Family 07/24/2311/08 [place] [address] [place] [address] PCP - General INTERNAL MEDICINE 11/19/24 documented as of this encounter
--- OUTSIDE RECORDS SUMMARY | 2025-03-16 14:57 | XMS_ITS | Encounter Summary ---
Author Organization [facility] Address [facility] [place] [address] Care Team Providers Care Translator/Interpreter Name Role Phone Yasmin Christiansen Primary Care Provider + [phone] Genet Garcia [facility] Primary Care Provider + Justin Toledo MD Primary Care Provider [phone] Encounter Details Date Type Department Care Team (Late st Contact Info) Description 12/02/2021 MyChart Message Enc [facility] Medical Group Family & Internal Medicine [facility] [address] [place] [phone] Yasmin Christiansen PA [address] [place], [place] [id number] Industry Segment Specialist Social History Tobacco Use Types Packs/Day Years [...] suspected to have Coronavirus/COVID-19? No / Unsure 11/28/2021 7:31 AM CDT documented as of this encounter Plan of Treatment Not on file documented as of this encounter Visit Diagnoses Not on filedocumented in this encounter Additional Health Concerns Infection Onset Date Last Indicated Resolved Time COVID-19 Rule Out 06/27/2022 06/27/2022 06/27/2022 12:02 PM SALES/MARKETING COVID-19 Rule Out 01/01/2023 01/01/2023 01/01/2023 11:16 AM CDT documented as of this encounter Care Teams Translator/Interpreter Relationship Specialty [place] [address] [place] [address] PCP - General PHYSICIAN HOMOGENIZER OPERATOR 08/06/20 07/23/23 Genet Garcia, [facility]- [address] [place] [address] PCP - General Nurse Practitioner Family 07/24/2311/08 [place] [address] [facility] [address] [address] PCP - General INTERNAL MEDICINE 11/19/24 documented as of this encounter
--- OUTSIDE RECORDS SUMMARY | 2025-03-16 14:57 | XMS_ITS | Encounter Summary ---
Author Organization [facility] Address [facility] [place] [address] Care Team Providers Care Scientist/Engineer Name Role Phone Yasmin Christiansen Primary Care Provider + [phone] Genet Garcia [facility] Primary Care Provider + Justin Toledo MD Primary Care Provider [phone] Encounter Details Date Type Department Care Team (Late st Contact Info) Description 11/16/2020 MyChart Message Enc [facility] Medical Group Family & Internal Medicine [facility] [address] [place] [phone] Yasmin Christiansen PA [address] [place], [place] [phone] Question Social History Tobacco Use Types Packs/Day Years [...] as of this encounter Progress Notes * Kandace Galindo RN - 11/16/2020 2:13 PM CDT Radha, I sent in a refill of your Diclofenac. Kandace DAMON * ALPESH Louie - 11/16/2020 12:35 PM CDT We can refill the Diclofenac. * Kandace Galindo RN - 11/16/2020 12:24 PM CDT Nurse called pt to clarify as we have not given her any narcotics. She see Dr. Toussaint for Ortho. Hedid not do any recent surgery as she needs to do her therapy first he stated. She will be seeing him every 2 months. She wants a refill of Diclofenac. She stated this helps he relax at night enough to help her sleep. She is not requesting anything stronger as this helps her enough. Please advise ifok to refill. documented in this encounter Plan of Treatment Not on file documented as of this encounter Visit Diagnoses Not on filedocumented in this encounter Additional Health Concerns Infection Onset Date Last Indicated Resolved Time COVID-19 Rule Out 06/27/2022 06/27/2022 06/27/2022 12:02 PM SUPERVISOR LOOPING COVID-19 Rule Out 01/01/2023 01/01/2023 01/01/2023 11:16 AM CDT documented as of this encounter Care Teams Scientist/Engineer Relationship Specialty [place] [address] [place] [address] PCP - General PHYSICIAN STATISTICAL TECHNICIAN 08/06/20 07/23/23 Genet Garcia, [facility]- [address] [place] [address] PCP - General Nurse Practitioner Family 07/24/2311/08 [place] [address] [address] PCP - General INTERNAL MEDICINE 11/19/24 documented as of this encounter
--- OUTSIDE RECORDS SUMMARY | 2025-03-16 14:57 | XMS_ITS | Clinical Summary ---
Author Organization [facility] Address [facility] [place] [address] Care Team Providers Care Accordion Tuner Name Role Phone Justin Toledo MD Primary Care Provider [phone] Allergies Active Allergy Reactions Criticality Noted Date Comments Peanut Butter Flavoring Agen t (Non-Screening) Headache Low 07/22/2020 Medications rizatriptan 10 MG tablet Take 1 tablet (10 mg total) by mouth as needed for Migraine. 1 Active ZILXI 1.5 % Foam 4 Active vitamin C (ASCORBIC ACID) 1000 MG tablet Take 1 tablet (1,000 mg total) by mouth daily. Active calcium-vitamin D-vitamin K (VIACTIV) 500-500-40 MG-UNT-MCG Chew Tab Chew 1 tablet by mouth daily. Active fish oil (OMEGA-3 FATTY ACID) 1000 MG Cap capsule Take 1 capsule (1,000 mg total) by mouth 2 (two) times daily. Active probiotic (FLORAJEN3) Cap capsule Take 1 capsule by mouth daily with breakfast. Active multi vitamin/minerals (THERA-M ENHANCED) tablet Take 1 tablet by mouth daily. Active clindamycin (CLEOCIN T) 1 % lotion APPLY A THIN LAYER TOPICALLY TO THE AFFECTED AREA TWICE DAILY 4 Active NURTEC 75 MG disintegrating tablet DISSOLVE 1 TABLET BY MOUTH NEEDED FOR MIGRAINE HEADACHE. NOT TO EXCEED 1 TABLET IN 24 HOUR PERIOD. 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 Immunizations Immunization Administration Dates Next Due MODERNA COVID-19 (12+) MRNA, LNP-S, PF, 100 MCG/ 0.5 ML DOSE 06/30/2020,06/02/2020 Tdap (Adacel) 08/06/2020 Family History Medical History Relation Comments Alcohol Abuse Father Cancer Father Bladder Depression Father Hypertension Father Mental Health Father bladder cancer Father Colon Cancer Maternal Grandfather Cancer Maternal Grandmother Diabetes Maternal Grandmother Heart Disease Maternal Grandmother Hypertension Maternal Grandmother Breast Cancer Mother Cancer Mother Colon Cancer Mother Early Hearing Loss Mother Heart Attack Mother had stents Heart Disease Mother Hypertension Paternal Grandfather Breast Cancer Paternal Grandmother Cancer Paternal Grandmother Skin cancer Paternal Grandmother melanoma Heart Disease Sister 1 Heart murmur Sister 1 No Known Problems Sister 2 Mental Health Sister 3 Depression Son 1 Mental Health Son 2 Relation Status Comments Father Alive Maternal Grandfather Maternal Grandmother Mother Paternal Grandfather Paternal Grandmother Alive Sister 1 Alive Sister 2 Alive Sister 3 Alive Son 1 Alive Son 2 Alive Social History Tobacco Use Types Packs/Day Years Used Date Smoking Tobacco: Former Cigarettes Q uit: 2016 Passive Smoke Exposure: Past Smokeless Tobacco: Never Tobacco Cessation:Counseling Given: Not Answered Alcohol Use Standard Drinks/Week Comments Yes 2 (1 standard drink = 0.6 oz pur e alcohol) socially; cidar PHQ-2 Answer Date Recorded Patient Health Questionnaire-2 Score 0 11/09/2024 Comments No Sex and Gender Information Value Date Recorded Sex Assigned at Female 11/09/2024 9:18 AM CDT Legal Sex Female 5:44 PM CDT Gender Identity Female 11/09/2024 9:18 AM CDT Sexual Orientation Not on file Last Filed Vital Signs Vital Sign Reading Time Taken Comments Blood Pressure 94/64 11/09/2024 9:21 AM CDT Pulse 65 11/09/2024 9:21 AM CDT Temperature 36.1 C (97 F) 11/09/2024 9:21 AM CDT Respiratory Rate 18 11/09/2024 9:21 AM CDT Oxygen Saturation 98% 11/09/2024 9:21 AM CDT Inhaled Oxygen Concentration - - Weight 88.9 kg (196 lb) 11/09/2024 9:21 AM CDT Height 172.7 cm (5' 8) 11/09/2024 9:21 AM CDT Body Mass Index 29.8 11/09/2024 9:21 AM CDT Plan of Treatment Health Maintenance Due Date Last Done Comments Annual Physical 12/12/2023 12/11/2022 Mammogram Screening 12/19/2024 12/19/2022, 12/06/2021, 10/26/2020 COVID-19 Vaccine (3 - 2024-2 6 season) 2025 06/30/2020, 06/02/2020 Influenza Adult (#1) 2025 Hepatitis B Vaccines (1 of 3 - 19+ 3-dose series) 04/05/2025 Postponed from 09/1993 (Patient/Guardian Refusal) Pneumococcal Vaccine: 50+ Years (1 of 1 - PCV) 11/09/2025 Postponed from 09/2024 (Patient Refused) Zoster Vaccines (1 of 2) 11/09/2025 Pos tponed from 2024 (Patient Refused) DTaP, Tdap and Td Vaccines ( 2 - Td or Tdap) 08/06/2030 08/06/2020 Colorectal Cancer Screening Colonoscopy (10 Years) 12/03/2033 12/04/2023, 06/04/2018 Hepatitis C Completed 07/24/2023 PHQ-2 (Physician [place]) Completed 11/09/2024 Hepatitis A Vaccines Aged Out No long er eligible based on patient's age to complete this topic Meningococcal B Vaccine Aged Out No l onger eligible based on patient's age to complete this topic Meningococcal Vaccine Aged Out No rosy pratibha eligible based on patient's age to complete this topic RSV Immunizations Under 20 Months Aged Out No longer eligible b ased on patient's age to complete this topic Procedures Procedure Name Priority Date/Time Associated Diagnosis Comments COLONOSCOPY GENERIC (SCAN ORDER) 12/04/2023 HEPATITIS C ANTIBODY W/RFX TO HCV RNA Routine 07/24/2023 11:07 AM CDT Encounter for hepatitis C screening test for low risk patient MAMMOGRAM GENERIC (SCAN ORDER) 12/19/2022 from Last 3 Months or Most Recently Relevant to Health Maintenance Results * COLONOSCOPY GENERIC (SCAN ORDER) (12/04/2023) 12/04/2023 [facility] Scanned SCANNING Final Resu lt * HEPATITIS C ANTIBODY ([facility] ONLY) (07/24/2023 11:07 AM CDT) HEPATITIS C AB NON-REACT EARLINE NON-REACT EARLINE [facility] Comment: HCV antibody was non-reactive. There is no laboratory evidence of HCV infection. In most cases, no further action is required. However, if recent HCV exposure is suspected, a test for HCV RNA (test code 23251) is suggested. For additional information please refer to http://education.Zolpy/faq/BHA59c1 (This link is being provided for informational/ educational purposes only.) 07/24/2023 11:0 7 AM CDT 07/25/2023 4:40 AM CDT Narrative Resulting Agency Comment Performing Organization Information: Site ID: [id number] Name: [facility] Address: [id number] [place] [id number] Director: Julia Huynh MD Genet Garcia [facility] Final Re sult Trove - JERAMY CATHERINE Trove [facility] [address] [place] [address], * MAMMOGRAM GENERIC (12/19/2022) Anatomical Region Laterality Modality Other 12/19/2022 [facility] Scanned SCANNING Final Resu lt from Last 3 Months or Most Recently Relevant to Health Maintenance Insurance [employer] Care Teams Accordion Tuner Relationship Specialty [place] [address] [facility] [address] [place] [id number] PCP - General INTERNAL MEDICINE 11/19/24
--- OUTSIDE RECORDS SUMMARY | 2025-03-16 14:57 | XMS_ITS | Encounter Summary ---
Author Organization [facility] Address [facility] [place] [address] Care Team Providers Care Lawn Technician Name Role Phone Yasmin Christiansen Primary Care Provider + [phone] [facility] Primary Care Provider + Justin Toledo MD Primary Care Provider [phone] Encounter Details Date Type Department Care Team (Late st Contact Info) Description 03/31/2022 MyChart Message Enc [facility] Medical Group Family & Internal Medicine [facility] [address] [place] [phone] Yasmin Christiansen PA [address] [place], [place] [id number] Toenails Social History Tobacco Use Types Packs/Day Years [...] as of this encounter Progress Notes * Yanira Ramires LPN - 04/14/2022 12:15 PM CST Appt 04/30/22 made TING MANAGER documented in this encounter Plan of Treatment Not on file documented as of this encounter Visit Diagnoses Not on filedocumented in this encounter Additional Health Concerns Infection Onset Date Last Indicated Resolved Time COVID-19 Rule Out 06/27/2022 06/27/2022 06/27/2022 12:02 PM PAINTING MANAGER COVID-19 Rule Out 01/01/2023 01/01/2023 01/01/2023 11:16 AM CDT documented as of this encounter Care Teams Lawn Technician Relationship Specialty [place] [address] [facility] [place] [address] PCP - General PHYSICIAN HYDROMETEOROLOGIST 08/06/20 07/23/23 Genet Garcia, [facility]- [address] [facility] [place] [address] PCP - General Nurse Practitioner Family 07/24/2311/08 [place] [address] [facility] [address] [address] PCP - General INTERNAL MEDICINE 11/19/24 documented as of this encounter
--- OUTSIDE RECORDS SUMMARY | 2025-03-16 14:57 | XMS_ITS | Encounter Summary ---
Author Organization [facility] Address [facility] [place] [address] Care Team Providers Care Programming Equipment Operator Name Role Phone Yasmin Christiansen Primary Care Provider + [phone] [facility] Primary Care Provider + Justin Toledo MD Primary Care Provider [phone] Encounter Details Date Type Department Care Team (Late st Contact Info) Description 06/27/2022 [employer] Message Enc [facility] Medical Group Family & Internal Medicine [address] [phone] [facility] Provider Medication Social History Tobacco Use Types Packs/Day Years [...] suspected to have Coronavirus/COVID-19? No / Unsure 06/27/2022 11:29 AM BARREL BRIDGE ASSEMBLER documented as of this encounter Plan of Treatment Not on file documented as of this encounter Visit Diagnoses Not on filedocumented in this encounter Additional Health Concerns Infection Onset Date Last Indicated Resolved Time COVID-19 Rule Out 06/27/2022 06/27/2022 06/27/2022 12:02 PM BARREL BRIDGE ASSEMBLER COVID-19 Rule Out 01/01/2023 01/01/2023 01/01/2023 11:16 AM CDT documented as of this encounter Care Teams Programming Equipment Operator Relationship Specialty [place] [address] [facility] [place] [address] PCP - General PHYSICIAN FAMILY PROGRAM SPECIALIST 08/06/20 07/23/23 Genet Garcia, [facility] [address] [facility] [place] [address] PCP - General Nurse Practitioner Family 07/24/2311/08 [place] [address] [facility] Ramos [address] [address] PCP - General INTERNAL MEDICINE 11/19/24 documented as of this encounter
--- OUTSIDE RECORDS SUMMARY | 2025-03-16 14:57 | XMS_ITS | Encounter Summary ---
Author Organization [facility] Address [facility] [place] [address] Care Team Providers Care Assistant Clinical Director Name Role Phone Yasmin Christiansen Primary Care Provider + [phone] [facility] Primary Care Provider + Justin Toledo MD Primary Care Provider [phone] Encounter Details Date Type Department Care Team (Late st Contact Info) Description 11/04/2021 [employer] Message Enc [facility] Medical Group Family & Internal Medicine [address] [phone] [facility] Appointment Social History Tobacco Use Types Packs/Day Years [...] Rule Out 06/27/2022 06/27/2022 06/27/2022 12:02 PM PRODUCT EXPERT COVID-19 Rule Out 01/01/2023 01/01/2023 01/01/2023 11:16 AM CDT documented as of this encounter Care Teams Assistant Clinical Director Relationship Specialty [place] [address] [facility] [place] [address] PCP - General PHYSICIAN TRAFFIC WORKFORCE REPRESENTATIVE 08/06/20 07/23/23 Genet Garcia, [employer]ER- [address] [facility] [place] [address] PCP - General Nurse Practitioner Family 07/24/2311/08 [place] [address] [address] [address] PCP - General INTERNAL MEDICINE 11/19/24 documented as of this encounter
== END 2025-03-15 15:32 | disposition home or self-care (01) ==
LOC: ANHFOHIMG 15:33
PROVIDERS: PCP Physician Assistant; Visit Provider Nurse Practitioner Family
DX: Z12.31 Encounter for screening mammogram for malignant neoplasm of breast (principal)
CPT/HCPCS: 77063; 77067